=== PATIENT | female | born 1990 | race Caucasian/White ===

== ENCOUNTER 2023-10-19 07:36 | Outpatient (CLI) | payer BC, MEDICAID | END 2023-10-19 23:59 | disposition home or self-care (01) | LOC: RAD 07:36 | PROVIDERS: ATTEND Obstetrics & Gynecology | DX: O09.893 Supervision of other high risk pregnancies, third trimester (principal); Z3A.32 32 weeks gestation of pregnancy | CPT/HCPCS: 76805 ==